=== PATIENT | female | born 1935 | race Caucasian/White ===

== ENCOUNTER 2016-12-26 20:22 | Inpatient (IN) | payer OTHER, BC ==
[~2016-12-26] VITALS: Ht 165.1 cm; Wt 79.9 kg
--- NOTE | ~2016-12-26 | D ---
[facility] [place] [address] DISCHARGE SUMMARY Name: CURTIS MICHELLE Room #: 419-P ADM IN M.R.#: [id number] Admission: 12/26/16 Attend Phys: Martha Sanchez Discharge: Date of : 37 Report #: [id number] THIS REPORT FOR: //name// CC: Minh Khan FINAL DIAGNOSES: 1. Community-acquired pneumonia. 2. Hypertension. 3. Mild senile dementia. HOSPITAL COURSE: The patient was admitted from home with altered mental status. Workup and evaluation through suggested pneumonia and she was treated for community-acquired pneumonia. With antibiotics and supportive measures, her status improved significantly. Her white count normalized and she was weaned off oxygen. She was up to the bedside chair and working with physical therapy and her mental status returned to baseline. There was some question of vomiting with some hematemesis at home. She had no further episodes here. Her hemoglobin remained stable. Aspirin was discontinued and she was placed on PPI. At this point, there are no plans for GI evaluation given her current illness status and we will just continue observation. PHYSICAL EXAMINATION ON THE DAY OF DISCHARGE: GENERAL: She was awake and alert. VITAL SIGNS: Stable. LUNGS: Clear. HEART: Regular. ABDOMEN: Soft, normoactive bowel sounds. EXTREMITIES: No edema. I prepared all the discharge orders and medications. DISPOSITION: She will be transferred to a shelter facility with diet and activity as tolerated, wean oxygen, PT, OT, and ST; follow up with Dr. Khan in 4 weeks. I have signed her discharge medication list. By: 0829 1049 Rick Boss MD /nt
--- NOTE | ~2016-12-26 | EKG ---
[place] [address] [facility] [place] [address] ELECTROCARDIOGRAM REPORT Name: CURTIS MICHELLE [facility] [id number] Admission: 12/26/16 Attend Phys: Discharge: Date of : 36 Report #: [id number] THIS REPORT FOR: //name// [facility] ED Test Date: 2016-12-26 Test Time: 20:33:11 Pat Name: CURTIS MICHELLE Department: Room: Gender: F Binding Machine Operator: WILBUR : 1935 Requested By: Christian Conrad Order Number: [id number] MD: Kwabena Charles Measurements Intervals [place] Rate: 81 P: 38 NH: 121 QRS: 30 QRSD: 94 T: 17 QT: 370 QTc: 430 Interpretive Statements Sinus rhythm Probable left atrial enlargement No previous ECG available for comparison Electronically Signed On 12-26-2016 22:00:30 GLAZING SUPERINTENDENT by Kwabena Charles [email or web address] <ELECTRONICALLY SIGNED> By: Kwabena Charles MD 12/26/162199 32 32 Kwabena Charles MD /DIANE
--- NOTE | ~2016-12-26 | HC ---
[facility] [place] [address] CONSULTATION Name: CURTIS MICHELLE Room #: 419-P [facility] IN M.R.#: [id number] Admission: 12/26/16 Attend Phys: Martha Sanchez Discharge: 12/29/16 Date of : 36 Report #: [id number] THIS REPORT FOR: //name// CC: Minh Khan DATE OF SERVICE: 12/28/2016 HISTORY OF PRESENT ILLNESS: The patient is an 81-year-old white female admitted with mental status changes, increased confusion x 2 weeks. She was diagnosed with the Community-acquired pneumonia. She was noted to have hypertension, hypoxic metabolic encephalopathy superimposed on her premorbid senile dementia. She has been placed on IV antibiotics. She is feeling better and doing better. We are seeing her in rehabilitation medicine consultation. Of note is the fact that she has had a history of 8 falls, since moving in to her independent living apartment. PAST MEDICAL HISTORY: Senile dementia, unspecified brain aneurysm. PAST SURGICAL HISTORY: Includes lumpectomy. FAMILY HISTORY: Noncontributory. ALLERGIES: Unknown. MEDICATIONS: Please see the full medication listing. SOCIAL HISTORY: [facility]. No steps, used a cane. Involved daughter. REVIEW OF SYSTEMS: Did not offer any current complaints of chest pain, shortness of breath or abdominal discomfort. PHYSICAL EXAMINATION: GENERAL: An 81-year-old female in no obvious distress. VITAL SIGNS: Last recorded temperature is 98.1, pulse 64, respirations are 20, blood pressure 130/70. NEUROLOGIC: The patient is alert, pleasant, follows basic 1 step commands. Definite latency to her responses. HEENT: Facies appeared to be symmetric. EXTREMITIES: She has functional range of motion of both upper extremities with strength grade 4-/5. DTRs are trace to 1. Lower extremities, no focal calf swelling, functional range of motion with strength grade 4- to 3+/5. DTRs are trace to 1. She is mod assist with sit to stand. Gait 150 feet min assist with a front-wheeled walker. ASSESSMENT: An 81-year-old female with the following problem list: [facility] [address] [place] [address] CONSULTATION Name: CURTIS MICHELLE Room #: 419-P [facility] IN M.R.#: [id number] Admission: 12/26/16 Attend Phys: Martha Sanchez Discharge: 12/29/16 Date of : 36 Report #: [id number] 1. Pneumonia. 2. Altered mental status. She has premorbid senile dementia, was noted to have some metabolic encephalopathy superimposed. 3. Hypertension. PLAN: Discussion with the patient's daughter who is durable power of crib clerk. Daughter is concerned regarding tolerance level for an acute inpatient rehabilitation stay. Would also question her overall medical complexity as far as meet criteria. It is my impression that the patient be best served by a usp facility transfer for further lower level therapies. Daughter is in full agreement with this case management currently involved as well. Thank you for asking us to assist in this patient's care. <ELECTRONICALLY SIGNED> By: Rick Gaston MD 01/03/17 1456 1246 0336 Rick Gaston MD /PMT
--- NOTE | ~2016-12-26 | H ---
[facility] [place] [address] HISTORY AND PHYSICAL Name: CURTIS MICHELLE Room #: 419-P ADM IN M.R.#: [id number] Admission: 12/26/16 Attend Phys: Martha Sanchez Discharge: Date of : 36 Report #: [id number] THIS REPORT FOR: //name// CC: Minh Khan DATE OF SERVICE: 12/27/2016 CHIEF COMPLAINT: Altered mental status. HISTORY OF PRESENT ILLNESS: The patient is an 81-year-old female who was brought to the Emergency Room by her family with altered mental status and said she has been more lethargic with increasing confusion for about 2 weeks. Yesterday afternoon they noted vomiting once and they thought perhaps had some signs of "blood." They also reported that it appeared that the patient was not "breathing properly." She had been living at [facility]. PAST MEDICAL HISTORY: There is report of senile dementia, unspecified brain aneurysm and unknown stroke. PAST SURGICAL HISTORY: She has had a lumpectomy. FAMILY HISTORY: Noncontributory. SOCIAL HISTORY: No chronic alcohol or tobacco use. ALLERGIES: Unknown. MEDICATIONS: Aspirin 81 mg, losartan 25 mg, vitamin D, calcium, Aricept 5 mg, Lexapro 10 mg, lovastatin 20 mg, Levoxyl 50 mcg. REVIEW OF SYSTEMS: She is resting comfortably. She denies pain or shortness of breath, otherwise really could not follow review. OBJECTIVE: VITAL SIGNS: Temperature 36.9, pulse 59, respirations 20, blood pressure 118/67, O2 sat 93-96% on 2 liters nasal cannula. GENERAL: She is awake and alert, resting comfortably in bed. HEAD AND NECK: Unremarkable. LUNGS: There are some crackles in the bases with a moist cough and clear anteriorly. HEART: Regular. ABDOMEN: Soft, normoactive bowel sounds. EXTREMITIES: No edema. NEUROLOGIC: She is awake and moves all extremities spontaneously. Global strength about 3/5. [address] [address] HISTORY AND PHYSICAL Name: CURTIS MICHELLE Room #: [facility] IN .R.#: [id number] Admission: 12/26/16 Attend Phys: Martha Sanchez Discharge: Date of : 36 Report #: [id number] LABORATORY DATA: White count was 22, PO2 on ABG was 66 on room air. She had 10% bands. CT head was unremarkable. Chest x-ray showed bilateral patchy infiltrate. ASSESSMENT: 1. Community-acquired pneumonia. 2. Hypertension. 3. Hypoxic metabolic encephalopathy due to community-acquired pneumonia. 4. Senile dementia. PLAN: Supportive measures with IV antibiotics. There has been no report of vomiting since admission. I will repeat her hemoglobin later in the day and just place her on a low dose Protonix for now, aspirin will be held and will use SCDs for DVT prophylaxis given the possible question of GI bleed at home. <ELECTRONICALLY SIGNED> By: Rick Boss MD 12/28/16 0918 1031 1112 Rick Boss MD /nt
[2016-12-26 20:56] LABS: HEMATOCRIT 37.6 % (37.0-47.0); HEMOGLOBIN 12.5 gm/dL (12.0-15.0); MCH 28.6 pg (26.0-34.0); MCHC 33.1 g/dL (28.0-37.0); MCV 86.5 fL (80.0-100.0); PLATELET COUNT 203 thou/uL (150-400); RBC 4.35 mil/uL (4.20-5.00); RDW 15.2 % (10.5-14.5); WBC 14.1 thou/uL (4.0-11.0)
[2016-12-26 20:58] LABS: MANUAL DIFF YES
[2016-12-26 21:08] LABS: URINE BILIRUBIN NEGATIVE (Negative); URINE BLOOD 1+ (Negative); URINE COLOR YELLOW; URINE GLUCOSE-RANDOM* NEGATIVE (Negative); URINE KETONES NEGATIVE (Negative); URINE LEUKOCYTES-REFLEX NEGATIVE (Negative); URINE PROTEIN (DIPSTICK) NEGATIVE (Negative); URINE UROBILINOGEN 0.2 E.U./dl (0.2-1.0)
[2016-12-26 21:11] LABS: ANION GAP 6 mmol/L (7-16); BUN 20 mg/dL (7-18); CALCIUM 8.4 mg/dL (8.5-10.1); CHLORIDE 105 mmol/L (98-107); CO2 28 mmol/L (21-32); CREATININE 0.8 mg/dL (0.6-1.0); GLUCOSE 171 mg/dL (74-106); POTASSIUM 3.8 mmol/L (3.5-5.1); SODIUM 139 mmol/L (136-145)
[2016-12-26 21:14] LABS: AMP/METHAMP Negative (Negative); BARBITURATES Negative (Negative); BENZODIAZEPINES Negative (Negative); COCAINE Negative (Negative); METHADONE Negative (Negative); OPIATES Negative (Negative); PCP Negative (Negative); THC Negative (Negative)
[2016-12-26 21:17] LABS: CASTS None Seen /LPF (None Seen); CRYSTALS None Seen /LPF (None Seen); SQUAMOUS 0-3 Few /LPF (0-3); URINE RBC 3-10 Few /HPF (0-2); URINE WBC-REFLEX 0-5 Rare /HPF (0-5)
[2016-12-26 21:19] LABS: ABG SAMPLE TYPE ARTERIAL; HCO3 25.3 mmol/L (22.0-26.0); LACTATE 2.22 mmol/L (0.5-2.0); O2(CT) 17.7 mL/dL (15.0-23.0); O2Hb 93.2 % (92.0-98.0); PCO2 39.1 mmHg (35.0-45.0); PO2 66.3 mmHg (80.0-100.0); STICK SITE R.RADIAL; pH 7.429 (7.360-7.450); sO2 93.7 % (92.0-98.0); tCO2 26.5 mmol/L (24.0-30.0)
[2016-12-26 21:20] LABS: ALBUMIN 3.3 g/dL (3.4-5.0); ALKALINE PHOSPHATASE 96 U/L (46-116); MAGNESIUM 1.8 mg/dL (1.8-2.4); SGOT 14 U/L (15-37); SGPT 16 U/L (30-65); TOTAL BILIRUBIN 0.7 mg/dL (<0.1-1.0); TOTAL PROTEIN 7.2 g/dL (6.4-8.2); TROPONIN-I < 0.04 ng/mL (<0.06)
[2016-12-26 21:22] LABS: APTT 23.4 Seconds (24.5-32.8); INR 1.1; PROTIME 10.8 Seconds (9.3-11.4)
[2016-12-26] MEDS ORDERED: CALCIUM 600 +1 EAC1 PO (21:33)
[2016-12-26] MEDS ORDERED: ASPIR 8181 MG PO (21:33)
[2016-12-26] MEDS ORDERED: COZAAR 25 MG TA25 M1 PO (21:33)
[2016-12-26] MEDS ORDERED: ARICEPT 5 MG TAB5 MG PO (21:45)
[2016-12-26] MEDS ORDERED: LEXAPRO 10 MG T10 M2 PO (21:45)
[2016-12-26] MEDS ORDERED: LOVASTATIN 20 M20 MG PO (21:45)
[2016-12-26] MEDS ORDERED: SYNTHROID50 MCG PO (21:46)
[2016-12-26 21:52] LABS: ABSOLUTE NEUTROPHILS 12.8 thou/uL (1.4-8.2); ANISOCYTOSIS 1+; TOTAL CELL COUNT 100
[2016-12-26 21:53] LABS: POLYCHROMASIA OCCASIONAL
[2016-12-26 23:33] VITALS: BP 165/111
[2016-12-27 04:29] VITALS: BP 118/67
[2016-12-27 05:41] LABS: HEMATOCRIT 35.3 % (37.0-47.0); HEMOGLOBIN 11.5 gm/dL (12.0-15.0); MCH 28.3 pg (26.0-34.0); MCHC 32.5 g/dL (28.0-37.0); MCV 87.1 fL (80.0-100.0); RBC 4.05 mil/uL (4.20-5.00); WBC 22.6 thou/uL (4.0-11.0)
[2016-12-27 05:47] LABS: CALCIUM 8.5 mg/dL (8.5-10.1); CREATININE 0.8 mg/dL (0.6-1.0)
[2016-12-27 08:15] VITALS: BP 110/57
[2016-12-27 11:13] LABS: FREE T4 1.22 ng/dL (0.82-1.77)
[2016-12-27 13:35] LABS: HEMATOCRIT 34.6 % (37.0-47.0); HEMOGLOBIN 11.2 gm/dL (12.0-15.0)
[2016-12-27 16:15] VITALS: BP 100/62
[2016-12-27 20:22] VITALS: BP 114/62
[2016-12-28 03:35] VITALS: BP 136/78
[2016-12-28 05:23] LABS: ALBUMIN 2.4 g/dL (3.4-5.0); CALCIUM 8.5 mg/dL (8.5-10.1); CREATININE 0.6 mg/dL (0.6-1.0); POTASSIUM 4.2 mmol/L (3.5-5.1); TOTAL BILIRUBIN 0.5 mg/dL (<0.1-1.0)
[2016-12-28 07:38] VITALS: BP 130/70
[2016-12-28 14:22] LABS: MCH 28.6 pg (26.0-34.0); MCHC 32.4 g/dL (28.0-37.0); MCV 88.2 fL (80.0-100.0); RBC 3.86 mil/uL (4.20-5.00); RDW 16.1 % (10.5-14.5); WBC 11.7 thou/uL (4.0-11.0)
[2016-12-28 20:20] VITALS: BP 134/79
[2016-12-28 23:16] VITALS: BP 130/79
[2016-12-29 04:08] VITALS: BP 146/78
[2016-12-29 06:27] LABS: HEMOGLOBIN 10.9 gm/dL (12.0-15.0); MCH 28.9 pg (26.0-34.0); MCHC 33.2 g/dL (28.0-37.0); MCV 87.3 fL (80.0-100.0); RBC 3.78 mil/uL (4.20-5.00); RDW 16.7 % (10.5-14.5); WBC 8.8 thou/uL (4.0-11.0)
[2016-12-29 06:46] LABS: CALCIUM 8.7 mg/dL (8.5-10.1); CREATININE 0.6 mg/dL (0.6-1.0); POTASSIUM 4.1 mmol/L (3.5-5.1)
[2016-12-29 07:30] VITALS: BP 146/82
[2016-12-29] MEDS ORDERED: SYNTHROID50 MCG PO (07:54)
[2016-12-29] MEDS ORDERED: ACETAMINOPHEN325 M1 PO (07:54)
[2016-12-29] MEDS ORDERED: PROTONIX 20 MG20 M1 PO (07:54)
[2016-12-29] MEDS ORDERED: CEFUROXIME500 MG PO (08:09)
[2016-12-29] MEDS ORDERED: AZITHROMYCIN 2250 MG PO (08:09)
== END 2016-12-29 13:11 | DRG 871 ==
LOC: ER 20:22 → EROBS 23:03 → 4E 23:03
PROVIDERS: Emergency Medicine; Internal Medicine; Internal Medicine Geriatric Medicine
DX: A41.9 Sepsis, unspecified organism (principal); J18.9 Pneumonia, unspecified organism; G93.41 Metabolic encephalopathy; F03.90 Unspecified dementia, unspecified severity, without behavioral disturbance, psychotic disturbance, mood disturbance, and anxiety; E86.0 Dehydration; E05.90 Thyrotoxicosis, unspecified without thyrotoxic crisis or storm; I10 Essential (primary) hypertension; Z86.73 Personal history of transient ischemic attack (TIA), and cerebral infarction without residual deficits; Z79.899 Other long term (current) drug therapy; Z28.21 Immunization not carried out because of patient refusal
CPT/HCPCS: 10084

== ENCOUNTER 2018-04-07 16:17 | Inpatient (IN) | payer OTHER, BC ==
[~2018-04-07] VITALS: Ht 160 cm; Wt 93.8 kg
[~2018-04-07 16:17] MED LIST: ACETAMINOPHEN325 M1 PO; ARICEPT 5 MG TAB5 MG PO; ASPIR 8181 MG PO; AZITHROMYCIN 2250 MG PO; CALCIUM 600 +1 EAC1 PO; CEFUROXIME500 MG PO; COZAAR 25 MG TA25 M1 PO; LEXAPRO 10 MG T10 M2 PO; LOVASTATIN 20 M20 MG PO; PROTONIX 20 MG20 M1 PO; SYNTHROID50 MCG PO
[2018-04-07 17:15] VITALS: BP 171/105
--- NOTE | 2018-04-07 17:55 | NUR ---
ASSUMED CARE OF PT AT 1700. ARRIVED TO ROOM WITH DAUGHTERS AT BEDSIDE DIRECET ADMIT FROM DR. Jaqueline CRUZ OFFICE C/O AMS AND WEAKNESS. ADMISSION ASSESSMENT COMPLETED. ALERT, ORIENTED TO PERSON, PLACE, AND SITUATION. HX DEMENTIA, CONFUSED AND FORGETFUL AT TIMES. DENIES PAIN AT THIS TIME, STATES SHE HAS LEFT TOE PAIN AT TIMES. DENIES N/V/D. ROOM AIR. NO OXYGEN USE AT HOME. REGULAR HEART SOUNDS. HX HTN, ELEVATED BP NOTED. ACTIVE BOWEL SOUNDS, LBM TODAY. INCONTINENT AT TIMES. SKIN INTACT. SOME BRUISING NOTED FROM RECENT FALL. PT VERY WEAK. X2 ASSIST. USUALLY USES WALKER. PHYSICIAN NOTIFIED ABOUT PT, DR. SOSA CALLED AND SAID DR. CRUZ WOULD CALL BACK.
[2018-04-07 18:28] LABS: HEMATOCRIT 37.4 % (37.0-47.0); HEMOGLOBIN 12.8 gm/dL (12.0-15.0); MCH 30.1 pg (26.0-34.0); MCHC 34.1 g/dL (28.0-37.0); MCV 88.1 fL (80.0-100.0); RBC 4.24 mil/uL (4.20-5.00); RDW 14.9 % (10.5-14.5); WBC 9.9 thou/uL (4.0-11.0)
[2018-04-07 18:37] LABS: ALBUMIN 3.2 g/dL (3.4-5.0); CALCIUM 9.5 mg/dL (8.5-10.1); CREATININE 0.8 mg/dL (0.6-1.0); POTASSIUM 3.9 mmol/L (3.5-5.1); TOTAL BILIRUBIN 0.3 mg/dL (<0.1-1.0); TOTAL PROTEIN 7.6 g/dL (6.4-8.2)
[2018-04-07 19:12] VITALS: BP 168/74
--- NOTE | 2018-04-07 19:29 | NUR ---
DR. CRUZ CALLED AND GAVE NEW ORDERS. PT LEFT FOR CXR AND HEAD CT, RETURNED IN STABLE CONDITION. PT LYING IN BED WITH DAUGHTERS AT BEDSIDE. END OF SHIFT.
--- NOTE | 2018-04-08 02:44 | NUR ---
PER REPORT,PT'S BP ELEVATED,WAS RECHECKED PER PHYSICIAN'S ORDER AFTER AN HOUR,BP WAS STILL ELEVATED AT 168/74,CALL PLACED TO PHYSICIAN,GOT A CALL BACK FROM DR SOSA,ORDERS NOTED AND CARRIED OUT.PT REPOSITIONED WHILE IN BED.PT RESTING COMFORTABLY ON HER BED.FALL PRECAUTIONS IN PLACE,CALL LIGHT WITHIN REACH.
[2018-04-08 05:06] VITALS: BP 169/83
[2018-04-08 07:50] VITALS: BP 169/86
--- NOTE | 2018-04-08 09:53 | NUR ---
ASSUMED CARE OF PT AT 0700. ASSESSMENT COMPLETED. ALERT, ORIENTED TO PERSON, PLACE, SITUATION. HX DEMENTIA, FORGETFUL AT TIMES. STATES NO CONCERNS, DENIES PAIN, N/V/D. PT ATE 100% OF BREAKFAST AND AM MEDS ORDERED. ELEVATED BLOOD PRESSURE NOTED, PHYSICIAN AWARE, RECENT BP MED CHANGES IN PROCESS. PT INCONTINENT, LBM YESTERDAY. PT IN STABLE CONDITION. PT WEAK, MAX X2 ASSIST, YELLOW SOCKS ON. PT TRANSFERED TO ROOM 223 IN VIA WHEELCHAIR WITH BELONGINGS. DAUGHTERS NOTIFIED OF ROOM CHANGE. REPORT GIVEN TO KARMEN.
[2018-04-08 10:22] VITALS: BP 145/57
--- NOTE | 2018-04-08 11:34 | NUR ---
RECEIVED PT FROM AROUND 1030. PT ALERT, ORIENTED TO PERSON,TIME ONLY. PT DENIES PAIN. RESTING COMFORTABLY IN BED AT THIS TIME. WILL CONTINUE CURRENT CARE.
[2018-04-08 12:56] LABS: TSH 10.32 uIU/mL (0.358-3.740)
--- NOTE | 2018-04-08 15:57 | H ---
[facility] [place] [address] HISTORY AND PHYSICAL Name: CURTIS MICHELLE Room #: 223-P ADM IN M.R.#: [id number] Admission: 04/07/18 ������������������ Attend Phys: Martha Sanchez Discharge: ������������������ Date of : 36 Report #: [id number] THIS REPORT FOR: //name// CC: Minh Khan DATE OF SERVICE: 04/07/2018 CHIEF COMPLAINT: Confusion, weakness. HISTORY OF PRESENT ILLNESS: The patient is an 82-year-old female who was admitted from the office for evaluation of confusion and weakness. She was seen yesterday in the office and reports of elevated blood pressures at home from home health and confusion. 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 She is admitted for evaluation. PAST MEDICAL HISTORY: Alzheimer disease. Mini mental status exam was performed in 08/2016 with a score of 22. She also has a history of hypertension, breast cancer with previous lumpectomy, dyslipidemia, TIA, history of strep, pneumonia, falls, GERD, hypothyroidism, depression, Parkinson's. PAST SURGICAL HISTORY: Left lumpectomy. FAMILY HISTORY: Noncontributory. SOCIAL HISTORY: She is living at home with family support. No chronic alcohol or tobacco use. ALLERGIES: None. MEDICATIONS: Aricept 5 mg, Levoxyl 50, calcium, Tylenol, losartan 50, Lexapro 10, Sinemet 25 half tab b.i.d. REVIEW OF SYSTEMS: She denies any headache, chest pain or shortness of breath, but otherwise was pleasantly confused and did not offer much of a review. OBJECTIVE: VITAL SIGNS: Temperature 36.2, pulse 52, respirations 16, blood pressure 169/86, O2 sat 98% on room air. GENERAL: She is awake and alert, eating breakfast, in no distress. HEAD AND NECK: Unremarkable. LUNGS: Clear. HEART: Regular. ABDOMEN: Soft, normoactive bowel sounds. EXTREMITIES: No edema. NEUROLOGIC: She moves all extremities, global strength estimated 3/5. She was [facility] [address] [place] [address] HISTORY AND PHYSICAL Name: CURTIS MICHELLE Room #: 223-[facility] IN M.R.#: [id number] Admission: 04/07/18 ������������������ Attend Phys: Martha Sanchez Discharge: ������������������ Date of : 36 Report #: [id number] not oriented to place, date or situation. LABORATORY DATA: Fairly unremarkable. ASSESSMENT: 1. Acute confusional state. 2. Senile dementia of Alzheimer's type according to office notes. 3. Hypertension. 4. Impaired ADL function. 5. Gait disturbance. 6. Global weakness. PLAN: Continue medications from home. Dr. Clifton has seen her in consultation to workup any treatable causes of dementia or any new medical issues. Social work to confirm with family on any living arrangement issues at home that need to be addressed or structured environment. ��������������������������������������������� <ELECTRONICALLY SIGNED> ���������������������������������������� By: Rick Boss MD ��������������������������������������������� 04/08/18 1557 0943 1053 Rick Boss MD /nt
--- NOTE | 2018-04-08 17:43 | NUR ---
PT DOING WELL. NO NEW CONCERNS OR COMPLAINTS. PT MEMORY IS POOR. YELLS FOR HELP AT TIMES AND DOES NOT REMEMBER NURSE BEING IN THE ROOM 10 MIN AGO. WILL CONTINUE WITH CURRENT CARE.
--- NOTE | 2018-04-09 05:27 | NUR ---
PATIENT ALERT AND ORIENTED X PERSON AND PLACE. FORGETFUL. NEEDS INSTRUCTIONS REPEATED SEVERAL TIMES. WOKE UP IN THE NIGHT AND KEPT PUTTING MERCHANDISE CLERK LIGHT. WHEN ASKED IF SHE NEEDED SOMETHING SHE JUST SAID SHE WAS TRYING TO TURN OFF THE TV. THE TV WAS OFF. EXPLAINED TO HER WHAT SHE WAS DOING BUT SHE KEPT PUSHING THE BUTTON. HER ROOM WAS DARK SO A LIGHT WAS TURNED ON, BUT SHE KEPT DOING IT. SHE COULD TELL ME SHE WAS PUSHING THE WRONG BUTTON BUT DID IT ANY WAY. FINALLY SHE QUIT. DENIES PAIN. SLEPT MOST OF NIGHT.
[2018-04-09 08:24] VITALS: BP 158/77
--- NOTE | 2018-04-09 14:35 | NUR ---
Case opened to follow for dc planning. Pt is alert and oriented x 2 this am. She was watching Slovenian programming and appeared comfortable. Sandblast Carver spoke with her dtr Lavern via phone. The pt currently lives at [facility] in [facility]. She is on the highest tier and has support with her adl's, meds and meals. She does walk to their dining room with a rwalker and sba. The pt's dtrs and staff have noticed a decrease in her energy and increased need for assist with gait and transfers as well as elevated BP prompting her to be brought to the hospital. Neruo workup and testing results are pending. Therapy and rehab evals are in progress as well. The pt was getting therapy prior to admission through [facility];they are onsite at her retirment community. CM role introduced. Will follow along for rehab recommendations. Message left for [facility] food service worker at the [facility] [phone] to verify pt's plof and to confirm what orders would be needed for [facility] to resume her therapy should she be able to return there directly at [place].
[2018-04-09 17:47] VITALS: BP 163/85
--- NOTE | 2018-04-09 19:45 | NUR ---
ASSUMED PT CARE AT 0700H. PT ALERT AND AWAKE. PT ORIENTED TO SELF AND PLACE. PT STATES NO PAIN. PT HAS NO S/S OF DISTRESS. PT HAD OT & PT. PT BEEN INCONTINENT. PT GOTTEN UP AT BEDSIDE COMMODE AND CHAIR WITH MAX ASSIST OF 2. PT SHUFFLES FEET AND WEAK ON LEFT SIDE. PT HAD US DONE THIS EVENING. MRI SCHEDULE TO BE DONE TOMORROW 04/10/18. PT CALL LIGHT WITH REACH. PT EDUCATED TO USE CALL LIGHT. PT'S FALL PRECAUTION IN PLACE. PT DAUGHTER AT BEDSIDE CURRENTLY. PT CONTINUES TO BE MONITORED FOR SAFETY.
[2018-04-09 20:38] VITALS: BP 143/71
--- NOTE | 2018-04-10 04:42 | NUR ---
PT ALERT TO NAME, DIFFICULTY WITH PLACE AND TIME, UP WITH MIN ASSIST OF 2, DIFFICULTY MOVING LEGS, NEEDS A LOT OF CUES DURING TRANSFER, CONTINENT AND INCONTINENT OF BLADDER, CONTINENT OF BOWEL, HAD ONE SOFT BM LAST NOC, ON ROOM AIR, TOOK MEDS WITH NO DIFFICULTY, SKIN INTACT, DAUGHTER STAYED LATE, BED ALARM ONCE FAMILY ARE GONE, HOURLY ROUNDING, ASSISTED WITH TURNING AND REPOSITIONING, GOING FOR MRI OF CERVICAL SPINE TODAY, MONITORED.,
[2018-04-10 05:21] VITALS: BP 166/86
[2018-04-10 08:03] VITALS: BP 166/80
--- NOTE | 2018-04-10 08:08 | NUR ---
ASSUMED PT CARE AT 0700. ASSESSMENT COMPLETED AND IS CHARTED. VSS. PT IS AWAKE AND PLEASANT BUT ORIENTED TO PERSON ONLY. PT DOES NOT SEEM TO UNDERSTAND SIMPLE COMMANDS AT TIMES. WHEN ASKED TO TAKE DEEP BREATHS SHE DID NOT UNDERSTAND. SHE DENIES PAIN AT THIS TIME. OTHERWISE NO NEW CONCERNS, WILL CONTINUE WITH CURRENT CARE. MRI TO BE DONE TODAY.
--- NOTE | 2018-04-10 13:51 | NUR ---
PT FAIR THIS SHIFT. STILL DOES NOT UNDERSTAND SIMPLE COMMANDS AT TIMES. TRANSFERRING WITH 1 ASSIST, GAIT BELT AND WALKER. NEEDS MUCH CUEING. PT UP IN CHAIR ALL MORNING. RESTING IN BED AT THIS TIME. WILL CONTINUE CURRENT CARE.
--- NOTE | 2018-04-10 13:55 | NUR ---
NICOLE reviewed chart and spoke with nursing and attending physician. Pt is slowly progressing towards goals for discharge. Pt may have an LP. Consult for [facility] physician ordered. NICOLE discussed case with [facility] wildlife rehabilitator, who states pt has not yet been evaluated. NICOLE spoke with pt's dtr, Lavern, via phone to provide update. Pt's dtr states that they are agreeable with pt going to [facility] if she is accepted. NICOLE will fax clinical/therapy updates to [facility]. NICOLE is following to assist as needed with discharge planning.
[2018-04-10 19:30] VITALS: BP 144/68
--- NOTE | 2018-04-11 01:21 | NUR ---
ASSUMED PT CARE 1899. PT ALERT TO SELF. REASSESSMENT COMPLETE. IV DRESSING C/D/I, NO SIGNS OF INFILTRATION. CONTNIUING HOURLY ROUNDING. BED/CHUCKS PAD CHANGES NEEDED. PT CALL LIGHT AND PERSONAL BELONINGS WITHIN REACH. WILL CONTINUE POC UNTIL EOS.
[2018-04-11 08:01] VITALS: BP 145/72
--- NOTE | 2018-04-11 08:05 | NUR ---
ASSUMED PT CARE AT 0700. ASSESSMENT COMPLETED AND IS CHARTED. VSS. PT IS AWAKE, ALERT/ORIENTED TO PERSON. ALSO KNOWS SHE IS IN THE HOSPITAL BUT DOES NOT KNOW WHICH HOSPITAL OR WHAT CITY. PT DENIES PAIN. PT HAVING DIFFICULTY THIS MORNING WITH MOBILITY. UNABLE TO SIT SELF UP ON EDGE OF BED, KEEPS FALLING BACKWARDS. EXTENSIVE 2 PERSON ASSIST TO CHAIR FOR BREAKFAST. WILL CONTINUE PLAN OF CARE.
[2018-04-11 08:08] LABS: CHOLESTEROL 180 mg/dL (<200); HDL CHOLESTEROL 41 mg/dL (>40); LDL CHOLESTEROL 120 mg/dL (<100); TC:HDL 4.4 Ratio (Not establshd); TRIGLYCERIDE 97 mg/dL (<150); VLDL 19 mg/dL (<40)
[2018-04-11 08:09] LABS: SERUM ASSESSMENT Clear
--- NOTE | 2018-04-11 10:07 | NUR ---
DISCHARGE NOTE: NICOLE reviewed chart and spoke with nursing and attending physician. Pt is medically stable for discharge to post-acute today. Pt's family have chosen to not have an LP, as recommended by Neuro. NICOLE spoke with Kam, mental health coordinator at [facility], who states they are able to accept pt to their post-acute facility for continued rehab services and medical mgmt. Pt will be going into room # 2031. Wheelchair van transportation is scheduled for [phone] per facility's arrangements through [employer]. NICOLE spoke with pt's dtr, Lavern, via phone to provide update and notify of discharge to the post-acute unit. Lavern is aware and agreeable with discharge plan. Awaiting final discharge orders at this time. Chart copy ordered. Nursing provided with number to call report. environmental engineering professor to fax final discharge orders/summary when available. No further SW needs identified at this time, but is available to assist should needs arise.
[2018-04-11] MEDS ORDERED: ASA81BEC PO (11:44)
[2018-04-11] MEDS ORDERED: COZAAR100 MG PO (11:44)
[2018-04-11] MEDS ORDERED: SYNTHROID88 MCG PO (11:47)
--- NOTE | 2018-04-11 12:12 | NUR ---
DISCHARGE ORDERS RECEIVED. PATIENT DISCHARGING TO [facility]. CHART COPIED PER MACHINE ENGINEER. ORDERS FAXED TO [facility] ADMISSIONS, VERIFIED RECEIVED. TRANSPORTATION PROVIDED PER FACILITY AND SET FOR 1330 HOURS. DAUGHTER NOTIFIED PER UNIT SW. UNIT RN AWARE AND CONTACT NUMBER PROVIDED FOR REPORT.
--- NOTE | 2018-04-11 14:24 | NUR ---
DISMISSED PT IN STABLE CONDITION VIA TRANSPORT SERVICES IN WHEELCHAIR. REPORT CALLED TO ARNIE AT RECEIVING FACILITY.
--- NOTE | 2018-04-14 12:14 | D ---
[facility] [place] [address] DISCHARGE SUMMARY Name: CURTIS MICHELLE Room #: 223-P [facility] IN M.R.#: [id number] Admission: 04/07/18 ������������������ Attend Phys: Martha Sanchez Discharge: 04/11/18 ������������������ Date of : 36 Report #: [id number] THIS REPORT FOR: //name// CC: Minh Khan DATE OF SERVICE: 04/11/2018 FINAL DIAGNOSES: 1. Cerebrovascular disease. 2. Subacute stroke. 3. Hypertension. 4. Alzheimer disease. HOSPITAL COURSE: The patient was admitted from home for evaluation of trouble walking and a change in her mentation. She seemed more confused beyond baseline. Studies were obtained and Dr. Clifton saw her in consultation. The pertinent findings include an MRI of the brain, which revealed a right frontal cortical infarct and some scattered vascular disease throughout. There was no definite hydrocephalus. The concern was that her acute change was related to a subacute stroke and with evidence of vascular disease throughout. At this point, a conservative approach of her workup was requested by the family and therefore an LP was not entertained. The elevated sed rate was noted and discussed, but at this point, we are not going to pursue an extensive collagen vascular or vasculitis type workup. At this point, we will focus on rehabilitation efforts at the skilled level. Her blood pressure was elevated and additional losartan was added along with aspirin. She had no other clinical complications. PHYSICAL EXAMINATION: On the day of discharge: GENERAL: She was awake and alert. VITAL SIGNS: Stable. LUNGS: Clear. HEART: Regular. ABDOMEN: Soft, normoactive bowel sounds. EXTREMITIES: No edema. DISPOSITION: She is transferred to a long term facility. Diet and activity as tolerated. She will be on aspirin, losartan 100 mg, and Levoxyl 88 mcg. Follow up as an outpatient with Dr. Khan. Dr. Clifton did suggest that a consideration of a therapeutic LP performed at a later date to see if this helped her gait, but we need close tracking from the skilled facility to monitor [address] [address] DISCHARGE SUMMARY Name: CURTIS MICHELLE Room #: 223-P [facility] IN .R.#: [id number] Admission: 04/07/18 ������������������ Attend Phys: Martha Sanchez Discharge: 04/11/18 ������������������ Date of : 36 Report #: [id number] her status to see if there was any improvement. I can follow up the lab test as an outpatient. ��������������������������������������������� <ELECTRONICALLY SIGNED> ���������������������������������������� By: Rick Boss MD ��������������������������������������������� 04/14/18 1214 1150 1505 Rick Boss MD /nt
--- NOTE | 2018-04-14 13:50 | HC ---
[facility] [place] [address] CONSULTATION Name: CURTIS MICHELLE Room #: 223-P [facility] IN M.R.#: [id number] Admission: 04/07/18 ������������������ Attend Phys: Martha Sanchez Discharge: 04/11/18 ������������������ Date of : 37 Report #: [id number] THIS REPORT FOR: //name// CC: Minh Khan DATE OF SERVICE: 04/07/2018 HISTORY OF PRESENT ILLNESS: This is an 82-year-old female patient, who was evaluated by me for a complicated history. The patient's daughter provides most of the history. She lives in assisted living, at one time she was living in independent living. Before that, she was living in [place]. It is mostly because of ambulation difficulty. From all indications, it looks like this ambulation difficulty is going on at least for a year or maybe longer. I reviewed the records in the computer and it looks like she has dementia and as far as 2017 the diagnosis was considered and she was also having recurrent falls at that time. In 2017, she was sent to a [facility] facility, although she was evaluated for rehab at that time, was not found to be a candidate for that. REVIEW OF SYSTEMS: Indicate that this patient at one time was admitted with altered mental status. At one time, she has some nausea, vomiting. I carried out 14-point review of systems with the patient. She does have a history of hypertension. She does have a history of encephalopathy secondary to pneumonia at one time, those were the relevant 14-point review of system. PAST MEDICAL HISTORY: Positive for encephalopathy, dementia and falls as far back as 2017. FAMILY HISTORY: Negative for early-age strokes. SOCIAL HISTORY: She lives in assisted living. PHYSICAL EXAMINATION: NEUROLOGIC: Indicate she is alert, responsive. She does follow command. Her speech looks intact, her memory and fund of knowledge is markedly diminished. Her strength, sensation, reflexes and tone looks symmetrical, but she has a lot of difficulty even standing up. She does not fall down. CARDIAC: Appear unremarkable. No respiratory difficulty was noted. GENERAL: She is moderately obese. LUNGS: She does not appear to have any rhonchi. VITAL SIGNS: Her blood pressure is 168/74, respirations 18, pulse is 62, temperature is 98. LABORATORY DATA: White count is 9.9. Sodium is normal. She had a CT scan of the head, which showed mostly unchanged exam since 2017. IMPRESSION: Long-standing ambulation difficulty and what looks like dementia. [facility] [address] [place] [address] CONSULTATION Name: CURTIS MICHELLE Room #: 223-P [facility] IN M.R.#: [id number] Admission: 04/07/18 ������������������ Attend Phys: Martha Sanchez Discharge: 04/11/18 ������������������ Date of : 37 Report #: [id number] It has become worse recently. We will see her tomorrow again and try to schedule an MRI in this patient of both brain and spine. We will do some workup. We will get her evaluated by PT, OT. Unfortunately, a lot of time we do not find a treatable cause. RECOMMENDATIONS: 1. We will check an MRI. 2. We will get TSH, vitamin B12. 3. Get her evaluated by PT, OT. 4. We will see if any treatable causes here. Thank you very much for this referral. ��������������������������������������������� <ELECTRONICALLY SIGNED> ���������������������������������������� By: Baldev Clifton MD ��������������������������������������������� 04/14/18 1350 [id number] Baldev Clifton MD /nt
== END 2018-04-11 14:30 | DRG 64 ==
LOC: 4E 16:17 → SICU 16:34 → 4E 16:34 → SICU 04-08 10:04
PROVIDERS: Psychiatry & Neurology Neuromuscular Medicine; ADMIT Internal Medicine
DX: I63.89 Other cerebral infarction (principal); G93.41 Metabolic encephalopathy; G91.2 (Idiopathic) normal pressure hydrocephalus; I67.9 Cerebrovascular disease, unspecified; G30.9 Alzheimer's disease, unspecified; F02.80 Dementia in other diseases classified elsewhere, unspecified severity, without behavioral disturbance, psychotic disturbance, mood disturbance, and anxiety; I10 Essential (primary) hypertension; E78.5 Hyperlipidemia, unspecified; K21.9 Gastro-esophageal reflux disease without esophagitis; E03.9 Hypothyroidism, unspecified; F32.9 Major depressive disorder, single episode, unspecified; G20 Parkinson's disease; Z85.3 Personal history of malignant neoplasm of breast; Z79.899 Other long term (current) drug therapy
CPT/HCPCS: 10783; 15002